=== PATIENT | female | born 1970 | race Caucasian/White ===

== ENCOUNTER 2025-03-07 22:10 | Emergency (ER) | payer SELFPAY ==
[~2025-03-07] VITALS: Ht 165.1 cm; Wt 70.6 kg
[2025-03-08 00:31] VITALS: BP 146/72; TEMP 97.6; O2SAT 99
[2025-03-08 01:24] LABS: BARBITURATES URINE NEGATIVE (NEGATIVE); BENZODIAZEPINES URINE NEGATIVE (NEGATIVE); COCAINE METABOLITE URINE NEGATIVE (NEGATIVE); METHADONE URINE NEGATIVE (NEGATIVE); OPIATES URINE NEGATIVE (NEGATIVE); PHENCYCLIDINE URINE NEGATIVE (NEGATIVE)
[2025-03-08 01:26] LABS: AMPHETAMINES LEVEL URINE POSITIVE (NEGATIVE); CANNABINOIDS URINE POSITIVE (NEGATIVE)
== END 2025-03-08 02:03 | disposition left against medical advice (07) ==
LOC: M ED 22:10
DX: Z53.21 Procedure and treatment not carried out due to patient leaving prior to being seen by health care provider (principal)

== ENCOUNTER → 2025-03-08 | Outpatient (REF) | LOC: M LAB REF 21:30 | DX: Z01.89 Encounter for other specified special examinations (principal) ==